=== PATIENT | male | born 1980 | race Caucasian/White ===

== ENCOUNTER 2023-02-07 21:40 | Inpatient (IN) | payer OTHER ==
[2023-02-07] MEDS ORDERED: MORPHINE SULFATE 4 MG/ML SYRINGE IV STA (21:54)
--- NOTE | 2023-02-07 22:05 | ED ---
General Adult HPI - General Chief complaint: Fall Stated complaint: Fall 15-20ft Time Seen by Provider: 02/07/23 21:44 Source: patient Mode of arrival: wheelchair Limitations: no limitations - History of Present Illness Initial comments: Dictation was produced using [employer] dictation software. please excuse any grammatical, word or spelling errors. Chief Complaint: 42-year-old male presents to the ER after fall History of Present Illness: 42-year-old male presents to emergency department after fall. He fell from a height of approximately 15 feet. He was on an area lift lost his balance falling to the ground landing on his right side. Patient complaining of back pain and rib pain. He was able to ambulate after the scene. Denies any extremity pain. The ROS documented in this emergency department record has been reviewed and confirmed by me. Those systems with pertinent positive or negative responses have been documented in the HPI. All other systems are other negative and/or noncontributory. - Related Data Allergies Allergy/AdvReac Type Severity Reaction Status Date / Time amoxicillin Allergy Unknown Verified 02/07/23 21:56 Review of Systems ROS Statement: Those systems with pertinent positive or pertinent negative responses have been documented in the HPI. ROS Other: All systems not noted in ROS Statement are negative. Past Medical History Past Medical History: No Reported History Past Alcohol Use History: Occasional Past Drug Use History: None Reported General Exam - General Exam Comments Initial Comments: PHYSICAL EXAM: General Impression: Alert and oriented x3, acute distress or pain HEENT: Normocephalic atraumatic, extra-ocular movements intact, pupils equal and reactive to light bilaterally, mucous membranes moist. Cardiovascular: Heart regular rate and rhythm Chest: Able to complete full sentences, no retractions, no tachypnea Abdomen: abdomen soft, non-tender, non-distended, no organomegaly Musculoskeletal: Pulses present and equal in all extremities, no peripheral edema Motor: no focal deficits noted Neurological: CN II-XII grossly intact, no focal motor or sensory deficits noted Skin: Patient to the right lower back Psych: Normal affect and mood Limitations: no limitations Course Vital Signs 02/07/23 02/07/23 02/07/23 21:46 21:56 23:00 Temperature 98.2 F Pulse Rate 82 77 Respiratory 16 16 Rate Blood Pressure 89/63 103/65 109/55 O2 Sat by Pulse 95 93 L 99 Oximetry 02/08/23 00:00 Temperature Pulse Rate 92 Respiratory 20 Rate Blood Pressure 110/65 O2 Sat by Pulse 97 Oximetry EKG Findings - EKG Comments: EKG Findings:: My EKG interpretation: Ventricular rate 70, sinus rhythm,. 16, QRS 86, QTC 421. No KS prolongation, no QTC prolongation, no ST or T-wave changes noted. Overall, this EKG is unremarkable Medical Decision Making - Medical Decision Making Was pt. sent in by a medical professional or institution (, [facility], LEGAL WORD PROCESSOR, urgent care, hospital, or assisted...) When possible be specific @ -No Did you speak to anyone other than the patient for history (EMS, parent, family, police, friend...)? What history was obtained from this source @ -No Did you review nursing and triage notes (agree or disagree)? Why? @ -I reviewed and agree with nursing and triage notes Were old charts reviewed (outside hosp., previous admission, EMS record, old EKG, old radiological studies, urgent care reports/EKG's, assisted records)? Report findings @ -No old charts were reviewed Differential Diagnosis (chest pain, altered mental status, abdominal pain women, abdominal pain men, vaginal bleeding, musculoskeletal, weakness, fever, dyspnea, syncope, headache, dizziness, GI bleed, back pain, seizure, CVA, palpatations, mental health)? @ -not applicable EKG interpreted by me (3pts min.). @ -See above X-rays interpreted by me (1pt min.). @ -Chest x-ray and pelvis x-ray shows no acute processes. CT interpreted by me (1pt min.). @ -Computed tomography scan of the head and C-spine shows no acute processes. Computed tomography scan chest and pelvis shows small tiny right-sided pneumothorax. There is a rib fracture to the 10th rib and transverse vertebral fractures L1 to L3 U/S interpreted by me (1pt. min.). @ -None done What testing was considered but not performed or refused? (CT, X-rays, U/S, labs)? Why? @ -None What meds were considered but not given or refused? Why? @ -None Did you discuss the management of the patient with other professionals (professionals i.e. , [facility], LEGAL WORD PROCESSOR, lab, RT, psych nurse, pediatric social worker, digital analyst, teacher, medical corps officer, shoe caser)? Give summary @ -Case discussed with Dr. Tucker for trauma admission Was smoking cessation discussed for >3mins.? @ -No Was critical care preformed (if so, how long)? @ -No Were there social determinants of health that impacted care today? How? (Homelessness, low income, unemployed, alcoholism, drug addiction, transportation, low edu. Level, literacy, decrease access to med. care, long-term, rehab)? @ -No Was there de-escalation of care discussed even if they declined (Discuss DNR or withdrawal of care, Hospice)? DNR status @ -No What co-morbidities impacted this encounter? (DM, HTN, Smoking, COPD, CAD, Cancer, CVA, ARF, Chemo, Hep., AIDS, mental health diagnosis, sleep apnea, morbid obesity)? @ -None Was patient admitted / discharged? Hospital course, mention meds given and ro bang, prescriptions, significant lab abnormalities, going to OR and other pertinent info. @ -42-year-old male presents to emergency department after a fall. Vital signs are stable. Initial blood pressure was 89/63 however likely an error. Repeat blood pressure measured 10 minutes later without any intervention was 06/13/1963. Laboratory evaluation obtained. Fund be within acceptable limits. Alcohol level is 144. CT shows rib fracture, tiny pneumothorax and transverse process fractures to the lumbar vertebral. Patient will be admitted for trauma observation for pneumothorax and rib fracture management. Undiagnosed new problem with uncertain prognosis? @ -No Drug Therapy requiring intensive monitoring for toxicity (Heparin, Nitro, Insulin, Cardizem)? @ -No Were any procedures done? @ -No Diagnosis/symptom? Acute, or Chronic, or Acute on Chronic? Uncomplicated (without systemic symptoms) or Complicated (systemic symptoms)? @ -1. Fall competent by pneumothorax, rib fracture and lumbar vertebral fractures Side effects of treatment? @ -No Exacerbation, Progression, or Severe Exacerbation? @ -No Poses a threat to life or bodily function? How? (Chest pain, USA, MT, pneumonia, PE, COPD, DKA, ARF, appy, cholecystitis, CVA, Diverticulitis, Homicidal, Suicidal, threat to staff... and all critical care pts) @ -yes - Lab Data Result diagrams: 02/07/23 21:56 02/07/23 21:56 Lab Results 02/07/23 02/07/23 02/07/23 Range/Units 21:56 21:56 21:56 WBC 11.0 H (3.8-10.6) k/uL RBC 4.96 (4.30-5.90) m/uL Hgb 14.9 (13.0-17.5) gm/dL Hct 43.9 (39.0-53.0) % MCV 88.5 (80.0-100.0) fL MCH 30.1 (25.0-35.0) pg MCHC 34.0 (31.0-37.0) g/dL RDW 12.6 (11.5-15.5) % Plt Count 330 (150-450) k/uL MPV 7.3 Neutrophils % 62 % Lymphocytes % 32 % Monocytes % 3 % Eosinophils % 1 % Basophils % 1 % Neutrophils # 6.8 (1.3-7.7) k/uL Lymphocytes # 3.6 (1.0-4.8) k/uL Monocytes # 0.3 (0-1.0) k/uL Eosinophils # 0.2 (0-0.7) k/uL Basophils # 0.1 (0-0.2) k/uL PT 10.5 (9.0-12.0) sec INR 1.0 (<1.2) APTT 20.0 L (22.0-30.0) sec Sodium 142 (137-145) mmol/L Potassium 3.9 (3.5-5.1) mmol/L Chloride 106 (98-107) mmol/L Carbon Dioxide 23 (22-30) mmol/L Anion Gap 13 mmol/L BUN 10 (9-20) mg/dL Creatinine 1.18 (0.66-1.25) mg/dL Est GFR (CKD-EPI)AfAm 88 (>60 ml/min/1.73 sqM) Est GFR (CKD-EPI)NonAf 76 (>60 ml/min/1.73 sqM) Glucose 102 H (74-99) mg/dL Calcium 8.9 (8.4-10.2) mg/dL Total Bilirubin 0.4 (0.2-1.3) mg/dL AST 123 H (17-59) U/L ALT 88 H (4-49) U/L Alkaline Phosphatase 77 (38-126) U/L Troponin I (0.000-0.034) ng/mL Total Protein 7.2 (6.3-8.2) g/dL Albumin 4.8 (3.5-5.0) g/dL Serum Alcohol 144 mg/dL Blood Type Blood Type Confirm Blood Type Recheck Bld Type Recheck Status Antibody Screen Spec Expiration Date 02/07/23 02/07/23 02/07/23 Range/Units 21:56 22:09 22:10 WBC (3.8-10.6) k/uL RBC (4.30-5.90) m/uL Hgb (13.0-17.5) gm/dL Hct (39.0-53.0) % MCV (80.0-100.0) fL MCH (25.0-35.0) pg MCHC (31.0-37.0) g/dL RDW (11.5-15.5) % Plt Count (150-450) k/uL MPV Neutrophils % % Lymphocytes % % Monocytes % % Eosinophils % % Basophils % % Neutrophils # (1.3-7.7) k/uL Lymphocytes # (1.0-4.8) k/uL Monocytes # (0-1.0) k/uL Eosinophils # (0-0.7) k/uL Basophils # (0-0.2) k/uL PT (9.0-12.0) sec INR (<1.2) APTT (22.0-30.0) sec Sodium (137-145) mmol/L Potassium (3.5-5.1) mmol/L Chloride (98-107) mmol/L Carbon Dioxide (22-30) mmol/L Anion Gap mmol/L BUN (9-20) mg/dL Creatinine (0.66-1.25) mg/dL Est GFR (CKD-EPI)AfAm (>60 ml/min/1.73 sqM) Est GFR (CKD-EPI)NonAf (>60 ml/min/1.73 sqM) Glucose (74-99) mg/dL Calcium (8.4-10.2) mg/dL Total Bilirubin (0.2-1.3) mg/dL AST (17-59) U/L ALT (4-49) U/L Alkaline Phosphatase (38-126) U/L Troponin I <0.012 (0.000-0.034) ng/mL Total Protein (6.3-8.2) g/dL Albumin (3.5-5.0) g/dL Serum Alcohol mg/dL Blood Type A Positive Blood Type Confirm A Positive Blood Type Recheck No Previous Record Bld Type Recheck Status CABO Indicated Antibody Screen NEGATIVE Spec Expiration Date 02/10/20232309 Disposition Clinical Impression: Fall Disposition: ADMITTED IP TO THIS HOSP Condition: Fair Referrals: [facility],Clinic [Primary Care Provider] - 1-2 days Decision Time: 00:00
[2023-02-07] MEDS ORDERED: HYDROmorphone 1 MG/ML 1 ML SYRINGE IVP STA (22:36)
--- NOTE | 2023-02-07 22:40 | CT ---
EXAMINATION TYPE: CT brain javier francois con DATE OF EXAM: 02/07/2023 COMPARISON: NONE HISTORY: FALL 15 FT, LANDED ON BACK. CT DLP: 1649.5 mGycm. Automated Exposure Control for Dose Reduction was Utilized. TECHNIQUE: CT scan of the head and cervical spine are performed without contrast. FINDINGS: There is no acute intracranial hemorrhage, mass effect, or midline shift identified. The ventricles and sulci are within normal limits in size. Ward-white matter differentiation is maintain ed. The calvarium is intact. Slightly low-lying cerebellar tonsils to level of foramen magnum. No gre ater than 5 mm inferior displacement is seen. The globes are intact and the visualized sinuses are cl ear. Cervical spine is visualized in its entirety from C1 through upper thoracic levels and demonstrates l evoconvex scoliotic curvature or positioning centered in the upper thoracic spine without evidence of acute fracture or dislocation. There is grade 1 retrolisthesis C4 on C5. There is mild posterior spu rring at C4-C5 and C6-C7 levels with posterior spur disc complexes effacing anterior thecal sac at th tavon levels sagittal images. Prevertebral soft tissue appears within normal limits. The C1-C2 articu lation is within normal limits on the coronal images. Review of axial images shows normal-appearing thyroid gland. Lung apices show no pneumothorax. IMPRESSION: 1. There is no acute fracture or dislocation evident in the cervical spine. 2. No acute intracranial hemorrhage or midline shift is seen.
[2023-02-07 22:44] LABS: Basophils # (A) 0.1 k/uL (0-0.2); Basophils % (A) 1 %; Eosinophils # (A) 0.2 k/uL (0-0.7); Eosinophils % (A) 1 %; HCT 43.9 % (39.0-53.0); HGB 14.9 gm/dL (13.0-17.5); Lymphocytes # (A) 3.6 k/uL (1.0-4.8); Lymphocytes % (A) 32 %; MCH 30.1 pg (25.0-35.0); MCV 88.5 fL (80.0-100.0); Mean Platelet Volume 7.3; Monocytes # (A) 0.3 k/uL (0-1.0); Monocytes % (A) 3 %; Neutrophils # (A) 6.8 k/uL (1.3-7.7); Neutrophils % (A) 62 %; Platelet Count 330 k/uL (150-450); RBC 4.96 m/uL (4.30-5.90); RDW 12.6 % (11.5-15.5)
--- NOTE | 2023-02-07 22:47 | CT ---
EXAMINATION TYPE: CT ChestAbdPelvis w con DATE OF EXAM: 02/07/2023 COMPARISON: None. HISTORY: FALL 15 FT, LANDED ON BACK. CT DLP: 1963.7 mGycm. Automated Exposure Control for Dose Reduction was Utilized. CONTRAST: CT scan of the thorax, abdomen and pelvis is performed with IV Contrast, patient injected with 100 mL of Isovue 300. FINDINGS: LUNGS: Small right-sided pneumothorax estimated near 5% anteriorly. Dependent opacities both lungs fa vors atelectasis MEDIASTINUM: There is a 4 vessel origin from the aortic arch which is normal variant. LIVER/GB: No significant abnormality is appreciated. PANCREAS: No significant abnormality is seen. SPLEEN: No significant abnormality is seen. ADRENALS: No significant abnormality is seen. KIDNEYS: No significant abnormality is seen. BOWEL: No significant abnormality is seen. GENITAL ORGANS: No gross abnormality seen. LYMPH NODES: No greater than 1cm abdominal or pelvic lymph nodes are appreciated. OSSEOUS STRUCTURES: Acute vertical slightly displaced fractures through the transverse process at rig ht L1-L3 levels. Acute slightly displaced comminuted fracture posterior right 10th rib coronal image 74. OTHER: Small to moderate-sized fat-containing bilateral inguinal hernias. IMPRESSION: 1. Small the tiny right-sided pneumothorax estimated at or just over 5%. No mediastinal shift. Acute comminuted displaced fracture of the posterior right 10th rib is likely etiology. 2. There are additional acute minimally displaced vertical fractures through the L1-L3 right-sided tr ansverse processes. Results communicated to ordering ER physician via telephone at time of dictation.
--- NOTE | 2023-02-07 22:48 | XR ---
EXAMINATION TYPE: XR pelvis AP view DATE OF EXAM: 02/07/2023 CLINICAL HISTORY: Trauma. TECHNIQUE: A single AP view of the pelvis is obtained. COMPARISON: Same day CT. FINDINGS: There is no acute fracture/dislocation evident in the pelvis. The hip and sacroiliac join ts appear symmetric and unremarkable. The overlying soft tissue appears unremarkable. IMPRESSION: There is no acute fracture or dislocation in the pelvis.
--- NOTE | 2023-02-07 22:49 | XR ---
EXAMINATION TYPE: XR chest 1V portable DATE OF EXAM: 02/07/2023 COMPARISON: Same day CT HISTORY: Trauma. TECHNIQUE: Single frontal view of the chest is obtained. FINDINGS: Low lung volumes are present. Tiny right-sided pneumothorax seen better on CT versus x-ray The cardiac silhouette size is within normal limits. Underlying scoliotic curvature is present. IMPRESSION: As above.
[2023-02-07 22:58] LABS: ALT 88 U/L (4-49); AST 123 U/L (17-59); African American GFR (CKD) 88 (>60 ml/min/1.73 sqM); Albumin 4.8 g/dL (3.5-5.0); Alkaline Phosphatase 77 U/L (38-126); Anion Gap 13 mmol/L; Blood Urea Nitrogen 10 mg/dL (9-20); Calcium 8.9 mg/dL (8.4-10.2); Carbon Dioxide 23 mmol/L (22-30); Chloride 106 mmol/L (98-107); Glucose 102 mg/dL (74-99); Non-African American GFR(CKD) 76 (>60 ml/min/1.73 sqM); Potassium 3.9 mmol/L (3.5-5.1); Prothrombin Time 10.5 sec (9.0-12.0); Sodium 142 mmol/L (137-145); Total Bilirubin 0.4 mg/dL (0.2-1.3); Total Protein 7.2 g/dL (6.3-8.2)
[2023-02-07 23:04] LABS: Alcohol 144 mg/dL
[2023-02-08] MEDS ORDERED: HYDROmorphone 1 MG/ML 1 ML SYRINGE IVP STA (00:04)
[2023-02-08] MEDS ORDERED: NALOXONE 0.4 MG/ML 1 ML VIAL IV PRN (00:34)
[2023-02-08] MEDS: MORPHINE SULFATE 4 MG/ML SYRINGE IVP PRN ×4 (01:59→17:18)
--- NOTE | 2023-02-08 04:35 | P.CNPUL ---
History of Present Illness Consult date: 02/08/23 Requesting physician: Crescencio John Reason for consult: pneumothorax, abnormal CXR/CT Chief complaint: Fall History of present illness: I am seeing this patient in new consultation today 02/08/2023 after he fell approximately 15 feet landing on his right side sustaining a displaced right sided 10th rib fracture and trace right-sided pneumothorax. Patient is a 42-year-old white male with out any significant medical history. He was out working in his yard, intoxicated, when he fell from heavy machinery landing on the "outrigger" of the machine. He reportedly fell on his right side. CT scan of the thorax, abdomen, and pelvis showed a small tiny right pneumothorax approximately 5%, acute comminuted displaced fracture of the posterior right 10th rib. There were also acute minimally displaced L1 to L3 right-sided vertebral fractures of the transverse processes. Bibasilar atelectasis. No hemothorax. No acute intra-abdominal abnormalities identified. Patient is currently lying in bed, on a 15 L nonrebreather, in no acute distress. He is oxygenating at 100%, and this was transitioned to 6 L nasal cannula. There is a right flank superficial abrasion. CBC and BMP on arrival were unremarkable. Mildly elevated LFTs. EtOH level was 144. Patient is reportedly well controll ed. Patient is being monitored on the general medical floor. Review of Systems REVIEW OF SYSTEMS: CONSTITUTIONAL: Denies any recent significant weight loss or weight gain. EYES: Denies change in vision. EARS, NOSE, MOUTH, THROAT: Denies headaches, denies sore throat. CARDIOVASCULAR: Denies palpitations or syncopal episodes. RESPIRATORY: Denies shortness of breath, cough, congestion or hemoptysis. GASTROINTESTINAL: Denies change in appetite, abdominal pain, nausea and vomiting, or diarrhea GENITOURINARY: Denies hematuria, denies infections. MUSKULOSKELETAL: Denies pain, denies swelling. Admits right lateral chest pain especially on deep inspiration. INTEGUMENTARY: Denies rash, denies eczema. NEUROLOGICAL: Denies recent memory loss, no recent seizure activity. PSYCHIATRIC: Denies anxiety, denies depression. HEMATOLOGIC/LYMPHATIC: Denies anemia, denies enlarged lymph node Past Medical History Past Medical History: No Reported History History of Any Multi-Drug Resistant Organisms: None Reported Additional Past Surgical History / Comment(s): lymphnode biopsy, was negative years ago. Additional Past Anesthesia/Blood Transfusion Reaction / Comment(s): has never had transfusion Past Psychological History: Anxiety, Depression, PTSD Additional Psychological History / Comment(s): [facility] Smoking Status: Former smoker Past Alcohol Use History: Occasional Past Drug Use History: None Reported Medications and Allergies Allergies Allergy/AdvReac Type Severity Reaction Status Date / Time amoxicillin Allergy Unknown Verified 02/07/23 21:56 Physical Exam Vitals: Vital Signs Temp Pulse Pulse Resp BP BP Pulse Ox 02/08/23 01:00 69 14 124/79 98 02/08/23 00:15 98.0 F 78 18 136/81 90 L 02/08/23 00:00 92 20 110/65 97 02/07/23 23:00 77 16 109/55 99 02/07/23 21:56 103/65 93 L 02/07/23 21:46 98.2 F 82 16 89/63 95 Intake and Output 02/07/23 02/07/23 02/08/23 14:59 22:59 06:59 Other: Weight 95.254 kg 95.254 kg GENERAL EXAM: Alert, 42-year-old white male, comfortable in no apparent distress. HEAD: Normocephalic and atraumatic EYES: Normal reaction of pupils, equal size. NOSE: Clear with pink turbinates. THROAT: No erythema or exudates. NECK: No masses, no JVD. CHEST: No chest wall deformity. No subcutaneous emphysema or crepitus LUNGS: Equal air entry with no crackles, wheeze, rhonchi or dullness. On 6 L/m nasal cannula oxygenating at 100%. No conversational dyspnea or accessory muscle use.. CVS: S1 and S2 normal with no audible murmur, regular rhythm. No extra heart sounds ABDOMEN: No hepatosplenomegaly, active bowel sounds, no guarding or rigidity. SPINE: No scoliosis or deformity SKIN: No rashes right flank superficial abrasion. CENTRAL NERVOUS SYSTEM: No focal deficits, tone is normal in all 4 extremities. EXTREMITIES: There is no peripheral edema, clubbing, or cyanosis. Peripheral pulses are intact. Results - Laboratory Findings CBC and BMP: 02/07/23 21:56 02/07/23 21:56 PT/INR, D-dimer PT 10.5 sec (9.0-12.0) 02/07/23 21:56 INR 1.0 (<1.2) 02/07/23 21:56 Abnormal lab findings: Abnormal Labs 02/07/23 02/07/23 02/07/23 21:56 21:56 21:56 WBC 11.0 H APTT 20.0 L Glucose 102 H AST 123 H ALT 88 H - Diagnostic Findings Chest x-ray: image reviewed CT scan - chest: image reviewed Assessment and Plan Assessment: Fall, resulting in an acute comminuted displaced fracture of the posterior right 10th rib and small right apical pneumothorax measuring approximately 5%. Acute minimally displaced L1 to L3 right-sided vertebral fractures of the transverse processes. Acute hypoxemic respiratory failure, currently on 6 L/m nasal cannula Alcohol intoxication Elevated LFTs, likely secondary to above Plan: Patient's medications, labs, and imaging were reviewed Pneumothorax is approximately 5%, and will be monitored for re-expansion. No need for chest tube placement at this time. Repeat chest x-ray in the morning Continue supplemental oxygen, and this can be weaned down. Mostly to facilitate lung re-expansion Encourage incentive spirometer Pain is reportedly well managed with current analgesics Patient is hemodynamically stable at this time. We will continue to follow and make recommendations I have personally seen and examined the patient, performed the documentation and the assessment and plan as written. Number of minutes spent on the visit:20 Time with Patient: Greater than 30
[2023-02-08] MEDS: KETOROLAC 15 MG/ML 1 ML VIAL IVP SCH ×3 (09:48→18:27)
--- NOTE | 2023-02-08 12:04 | P.CNOR ---
History of Present Illness - [facility] Consult date: 02/08/23 Consult reason: other (L1, L2 and L3 right-sided transverse process fracture) History of present illness: Patient is a 42-year-old male who was brought in to [facility] emergency room on 02/07/2023 after sustaining a fall at his home. Apparently the patient was up on some scaffolding material when he fell about 15 feet landing on his right side. Patient was able to ambulate after the injury, he actually walked into the hospital for evaluation. Patient had multiple imaging test lab test done. Patient was noted to be intoxicated from blood-alcohol level. He was noted to have a right-sided rib fracture and a small pneumothorax on the right- hand side. Imaging test also demonstrated minimally displaced transverse process fractures of L1, L2 and L3 on the right-hand side. Patient was admitted to the hospital for further evaluation, our orthopedic team was consulted. Patient was evaluated today at bedside, he is resting comfortably and lying flat in his bed. He notes most of his pain to the right side of the ribs and his right lower back. There was noted abrasions to the right side of his lower back and flank. Patient denies any obvious pain involving the bilateral lower extremities or bilateral upper extremities. He denies any headaches, lightheadedness or chest pain. He does note some mild shortness of breath when he attempts to take deep breaths. Patient does get some discomfort in the right side of the low back with movement of the bilateral lower extremities. He denie s any numbness or tingling in the bilateral upper or lower extremities. He denies any numbness or tingling of the genitals or perineal region. Patient denies any loss of bowel or bladder function, he has urinated since being in the hospital, he denies a bowel movement at this time. She denies any previous surgery to the cervical, thoracic or lumbar spine. Review of Systems Constitutional: Reports as per HPI Past Medical History Past Medical History: No Reported History History of Any Multi-Drug Resistant Organisms: None Reported Additional Past Surgical History / Comment(s): lymphnode biopsy, was negative years ago. Additional Past Anesthesia/Blood Transfusion Reaction / Comm: has never had transfusion Past Psychological History: Anxiety, Depression, PTSD Additional Psychological History / Comment(s): [facility] Smoking Status: Former smoker Past Alcohol Use History: Occasional Past Drug Use History: None Reported Medications and Allergies Home Medications Medication Instructions Recorded Confirmed Type Citalopram Hydrobromide [CeleXA] 40 mg PO HS 02/08/23 02/08/23 History Prazosin HCl 2 mg PO HS 02/08/23 02/08/23 History hydrOXYzine pamoate 50 mg PO BID PRN 02/08/23 02/08/23 History Allergies Allergy/AdvReac Type Severity Reaction Status Date / Time amoxicillin Allergy Unknown Verified 02/08/23 07:29 Physical Examination Gen: AOx3, NAD VSS stable at this time Integument: No obvious open lesions, sore to the cervical, thoracic or lumbar spine. There is some abrasions noted to the right low back/flank area. Palpation: No tenderness with palpation throughout the cervical or thoracic spine, he does have some mild tenderness on the right side of the paraspinal regions of lumbar area ROM: Full range of motion in all major muscle groups of the bilateral upper extremities, no focal deficits appreciated Range of motion is intact in all major muscle groups of bilateral lower extremities, hip flexion along with knee extension and knee flexion does reprod uce some discomfort on the right side low back Sensory Exam: Senory exam to light touch is intact C5-T1 Senosry exam to light touch is intact L2-S1 Motor: 5/5 strength appreciated in the bilateral upper extremities with shoulder elevation, shoulder abduction, elbow extension, elbow flexion, wrist extension, wrist flexion, meat cooler 5/5 strength appreciated in the bilateral lower extremities with plantar flexion, dorsiflexion, EHL, FHL 4+/5 strength appreciated in the bilateral lower extremities with hip flexion, knee extension, knee flexion Reflexes: 2/4 in all UE and LE Negative Osmani's bilaterally, negative Babinski bilaterally, negative clonus bilaterally Special Test: Logroll maneuver reproduces no pain bilaterally Results - Labs Labs: Abnormal Lab Results - Last 24 Hours (Table) 02/07/23 02/07/23 02/07/23 Range/Units 21:56 21:56 21:56 WBC 11.0 H (3.8-10.6) k/uL APTT 20.0 L (22.0-30.0) sec Glucose 102 H (74-99) mg/dL AST 123 H (17-59) U/L ALT 88 H (4-49) U/L H & H 02/07/23 Range/Units 21:56 Hgb 14.9 (13.0-17.5) gm/dL Hct 43.9 (39.0-53.0) % Coagulation 02/07/23 Range/Units 21:56 INR 1.0 (<1.2) Result Diagrams: 02/07/23 21:56 02/07/23 21:56 Assessment and Plan Assessment: Low back pain Minimally displaced right-sided transverse process fractures L1, L2, L3 Right-sided rib fracture Status post fall from height Other medical comorbidities Plan: Imaging: Reports and images were reviewed of the cervical spine, abdomen/pelvis and chest CT report and images were also reviewed. Images demonstrated the mildly displaced transverse process fractures of L1, L2 and L3 on the right-hand side. Right sided rib fracture was also noted. Cervical spine demonstrated no acute fractures or dislocations, spondylitic changes noted throughout C4-C5, C5-C6, C6-C7 Plan: I was able to discuss this case, this include imaging studies, physical exam findings and lab studies with my attending Dr. Prieto. No emergent orthopedic surgical intervention is recommended at this time Recommending conservative measures, this to include weight-bear as tolerated. Patient was advised to avoid excessive bending, lifting and twisting. We discussed the possibility of an LSO brace in the future if his symptoms don't improve, this can be addressed in the outpatient setting. Pain control, recommending the use of Tylenol and NSAIDs at this time. Also recommending the use of ice to the low back and right sided rib area. GI and DVT prophylaxis per primary medical service Other medical records technician and recommendations appreciated Discharge planning: Orthopedic standpoint the patient is stable for discharge and follow-up in the outpatient setting with Dr. Prieto. Please contact our service any further questions Time with Patient: Less than 30
[2023-02-08] MEDS ORDERED: LORazepam 1 MG TAB PO PRN ×3 (13:57)
[2023-02-08] MEDS ORDERED: LORazepam 0.5 MG TAB PO PRN (13:57)
[2023-02-08] MEDS ORDERED: THIAMINE 100 MG/ML 2 ML VIAL IM STA (13:57)
--- NOTE | 2023-02-08 13:57 | P.GSHP ---
History of Present Illness H&P Date: 02/08/23 CHIEF COMPLAINT: Fall HISTORY OF PRESENT ILLNESS: This is a 42-year-old male who was on a left. He reports that he slipped and fell from the left about 15 feet landing on his right side on the ground. He complains of back and right rib pain. He denies any loss of consciousness or hitting his head. Denies any abdominal pain. Alcohol level was elevated at 144. He had a computed tomography scan of the chest abdomen pelvis that did reveal a tiny right pneumothorax and displaced fracture posterior 10th rib and fracture of the L1 to L3 right transverse processes. Patient admitted to trauma service. Patient initially did require to be on a nonrebreather and is now on 4 L nasal cannula satting at 100%. PAST MEDICAL HISTORY: See list. PAST SURGICAL HISTORY: See list. MEDICATIONS: See list. ALLERGIES: See list. SOCIAL HISTORY: No illicit drug use. REVIEW OF SYSTEMS: CONSTITUTIONAL: Denies fever or chills. HEENT: Denies blurred vision, vision changes, or eye pain. Denies hemoptysis ENDOCRINE: Denies heat or cold intolerance. CARDIOVASCULAR: Denies chest pain or pressure. RESPIRATORY: No shortness of breath. GASTROINTESTINAL: Denies abdominal pain. Denies nausea or vomiting. NEURO: Denies history of seizures. PSYCH: No depression or suicidal ideation HEMATOLOGIC: Denies bleeding disorders. LYMPHATIC: The patient denies any lumps and bumps around the neck. GENITOURINARY: Denies any blood in urine or increased urinary frequency. MUSCULOSKELETAL: Denies myalgias. Denies joint swelling. Denies decreased range of motion beyond patients baseline. SKIN: Denies pruitis. Denies rash. PHYSICAL EXAM: VITAL SIGNS: Reviewed GENERAL: Well-developed in no acute distress. HEENT: No sclera icterus. Extraocular movements grossly intact. Moist buccal mucosa. Head is atraumatic, normocephalic. Hears conversational speech. No nasal drainage. NECK: Supple without lymphadenopathy. CHEST: Non-labored respirations and equal bilateral excursions. CARDIOVASCULAR: Palpable 2+ radial pulses. ABDOMEN: Soft. Nondistended. Nontender MUSCULOSKELETAL: No clubbing or cyanosis. NEUROLOGIC: No focal or lateralizing signs. Cranial nerves II through XII grossly intact. PSYCH: Appropriate affect. Alert and oriented to person, place and time. SKIN: Well perfused. Good skin turgor. LABORATORY DATA: WBC 11 Hgb 14.9 and platelets 330 Sodium 142 potassium 3.9 creatinine 1.18 Lactic acid 1.8 AST 123 ALT 88 troponin negative Serum alcohol elevated at 144 IMAGING: CT had cervical spine there is no acute fracture or dislocation evident of the cervical spine. No acute intracranial hemorrhage or midline shift Computed tomography scan chest abdomen and pelvis small tiny right-sided pneumothorax estimated at just over 5%. No mediastinal shift. Acute comminuted displaced fracture of the posterior right 10th rib. There are additional acute minimally displaced vertical fracture through the O1 to L3 right-sided transverse process ASSESSMENT: 1. 15 foot fall from lift to ground level 2. Tiny right-sided pneumothorax 3. Acute comminuted displaced fracture of the posterior right 10th rib 4. Acute Displaced fractures through L1 to L3 right-sided transverse processes 5. Alcohol intoxication 6. Elevated LFTs PLAN: -Consults placed for pulmonary, spinal surgery, medicine service and pain service -Continue monitoring oxygen saturation -Continue pain management. Toradol and oral Tylenol ordered scheduled -Add CIIL protocol to monitor for any EtOH withdrawal -Repeat labs and chest x-ray in a.m. -Encouraged patient to use incentive spirometer -DVT prophylaxis subcu heparin Physician Production Control Planner note has been reviewed by physician. Signing provider agrees with the documented findings, assessment, and plan of care. Past Medical History Past Medical History: No Reported History History of Any Multi-Drug Resistant Organisms: None Reported Additional Past Surgical History / Comment(s): lymphnode biopsy, was negative years ago. Additional Past Anesthesia/Blood Transfusion Reaction / Comment(s): has never had transfusion Past Psychological History: Anxiety, Depression, PTSD Additional Psychological History / Comment(s): treatment through the [facility] Smoking Status: Former smoker Past Alcohol Use History: Occasional Past Drug Use History: None Reported Medications and Allergies Home Medications Medication Instructions Recorded Confirmed Type Citalopram Hydrobromide [CeleXA] 40 mg PO HS 02/08/23 02/08/23 History Prazosin HCl 2 mg PO HS 02/08/23 02/08/23 History hydrOXYzine pamoate 50 mg PO BID PRN 02/08/23 02/08/23 History Allergies Allergy/AdvReac Type Severity Reaction Status Date / Time amoxicillin Allergy Unknown Verified 02/08/23 07:29 Surgical - Exam Vital Signs Temp Pulse Resp BP Pulse Ox 98.2 F 82 16 89/63 95 02/07/23 21:46 02/07/23 21:46 02/07/23 21:46 02/07/23 21:46 02/07/23 21:46 Results - Labs 02/07/23 21:56 02/07/23 21:56 Abnormal Lab Results - Last 24 Hours (Table) 02/07/23 02/07/23 02/07/23 Range/Units 21:56 21:56 21:56 WBC 11.0 H (3.8-10.6) k/uL APTT 20.0 L (22.0-30.0) sec Glucose 102 H (74-99) mg/dL AST 123 H (17-59) U/L ALT 88 H (4-49) U/L Diabetes panel 02/07/23 Range/Units 21:56 Sodium 142 (137-145) mmol/L Potassium 3.9 (3.5-5.1) mmol/L Chloride 106 (98-107) mmol/L Carbon Dioxide 23 (22-30) mmol/L BUN 10 (9-20) mg/dL Creatinine 1.18 (0.66-1.25) mg/dL Glucose 102 H (74-99) mg/dL Calcium 8.9 (8.4-10.2) mg/dL AST 123 H (17-59) U/L ALT 88 H (4-49) U/L Alkaline Phosphatase 77 (38-126) U/L Total Protein 7.2 (6.3-8.2) g/dL Albumin 4.8 (3.5-5.0) g/dL Calcium panel 02/07/23 Range/Units 21:56 Calcium 8.9 (8.4-10.2) mg/dL Albumin 4.8 (3.5-5.0) g/dL Pituitary panel 02/07/23 Range/Units 21:56 Sodium 142 (137-145) mmol/L Potassium 3.9 (3.5-5.1) mmol/L Chloride 106 (98-107) mmol/L Carbon Dioxide 23 (22-30) mmol/L BUN 10 (9-20) mg/dL Creatinine 1.18 (0.66-1.25) mg/dL Glucose 102 H (74-99) mg/dL Calcium 8.9 (8.4-10.2) mg/dL Adrenal panel 02/07/23 Range/Units 21:56 Sodium 142 (137-145) mmol/L Potassium 3.9 (3.5-5.1) mmol/L Chloride 106 (98-107) mmol/L Carbon Dioxide 23 (22-30) mmol/L BUN 10 (9-20) mg/dL Creatinine 1.18 (0.66-1.25) mg/dL Glucose 102 H (74-99) mg/dL Calcium 8.9 (8.4-10.2) mg/dL Total Bilirubin 0.4 (0.2-1.3) mg/dL AST 123 H (17-59) U/L ALT 88 H (4-49) U/L Alkaline Phosphatase 77 (38-126) U/L Total Protein 7.2 (6.3-8.2) g/dL Albumin 4.8 (3.5-5.0) g/dL
[2023-02-08] MEDS: ACETAMINOPHEN TAB 500 MG TAB PO SCH ×2 (14:46→20:36)
--- NOTE | 2023-02-08 14:57 | P.PAINPG ---
Objective - Vital Signs Vital signs: Vital Signs Temp 98.0 F 02/08/23 00:15 Pulse 69 02/08/23 01:00 Resp 14 02/08/23 01:00 BP 124/79 02/08/23 01:00 Pulse Ox 98 02/08/23 01:00 FiO2 Intake & Output 02/07/23 02/08/23 02/08/23 18:59 06:59 18:59 Weight 95.254 kg Other: # Voids 0 - Labs CBC & Chem 7: 02/07/23 21:56 02/07/23 21:56 Labs: Abnormal Lab Results - Last 24 Hours (Table) 02/07/23 02/07/23 02/07/23 Range/Units 21:56 21:56 21:56 WBC 11.0 H (3.8-10.6) k/uL APTT 20.0 L (22.0-30.0) sec Glucose 102 H (74-99) mg/dL AST 123 H (17-59) U/L ALT 88 H (4-49) U/L PQRS Measure Charge Sheet Comment: HISTORY OF PRESENT ILLNESS: 42 yr old inpatient male as a referral from Dr John presents today w severe and chronic upper and lower back pain secondary to R rib fractures and R minimally displaced L1-L3 transverse process fractures for evaluation. He fell approx 15 ft from a ladder approx 1 day ago. Pt states pain level is provoked at 10/10 in intensity, constant, localized in the R posterior upper back and R lower back, sharp in character w shooting pain towards the R flank. Pain is provoked by any type of movement. Pain is alleviated by medications (Dilaudid 1mg IVP q3h prn, MS ER 4mg IVP q4h prn, Toradol 15mg/mL q6h prn), repositioning and rest. PMH: OA, PTSD/ MDD/ Anxiety PSH: DENIES SH: Former tobacco user, Occasional ETOH use, No illicit drug use. history. FH: Non contributory All: See list Meds: See list REVIEW OF ORGAN SYSTEMS: CONSTITUTIONAL: No fevers or chills. No recent weight loss. NEUROLOGICAL: + numbness and tingling along the distal extremities. No seizure disorders or headaches. MUSCULOSKELETAL: + pain PSYCHIATRIC: Denies current depression or suicidal thoughts. Physical Examinations : Constitutional : Cooperative , not in acute distress . Neurologic : Cranial nerve II to XII intact. No focal neurological deficits. Psychiatric : alert & oriented x 3. Matching mood & appropriate affect. Judgment & insight intact. Musculoskeletal : Cervical Spine Motor strength in the deltoid and biceps: Normal right side. Normal Left side Motor strength biceps and the wrist extensors: Normal right side . Normal left side Motor strength in the triceps muscle: Normal right side. Normal left side Deep tendon reflexes: Normal at the biceps. Normal at Brachioradialis. Normal at triceps Vertebral body tenderness to deep palpation over Cervical facet loading test: positive bilaterally Spurling test: positive bilaterally Neck distraction test: positive bilaterally Osmani sign: positive bilaterally Thoracic spine Diffuse vertebral body TTP over T9, T10, T11, T12 Lumbar spine Motor strength lower extremities ,thigh and legs 5/5 Right side , 5/5 Left side Deep tendon reflexes : Normal Knee Jerk. Normal Ankle Jerk Vertebral body tenderness over L1, L2, L3 Pacheco Test positive Lumbar facet Loading Test: positive Right / positive Left Range of motion of the lumbar spine Flexion 30 degrees, extension 10 degrees Straight Leg Raise test: Left/ Right positive at degree Donya test: positive right / positive left. Severe tenderness over the Sacroiliac joint on the Right / Left sides Gaenslen test: positive bilaterally Seated flexion test: positive bilaterally. Sacral spine : Severe tenderness over the Sacroiliac joint: right side / left side Range of motion: Flexion of the lumbar spine <60 degrees Range of motion: Extension of the lumbar spine <20 degrees Gaenslen's Test positive Simone's Test positive Donya test: positive right side / left side Thigh Thrust Test Sacral Thrust Test Imaging: CT without contrast of chest from 02/07/[address] without contrast of pelvis from 02/07/23 reviewed Assessment/ Plan : R T10 posterior rib fracture s/p fall, R Transverse L1, L2, L3 fractures s/p fall Recommendation of SOILA R TFESI T9-10 and L1-L2, L2-L3, L3-L4 and medication management s/p discharge. Risks, benefits of procedure discussed and patient verbalized understanding. Admits to aspirin or anti- coagulant use or medical history of diabetes. Protocol for discontinuation/ continuation of medications gordy procedure discussed. Minimal anesthesia provided, if clinically indicated, consisting of Versed and Fentanyl. All questions answered. I have spent greater than 30 minutes on patient care today. Dr Fenton was carrol ilable by phone for the evaluation of this patient. The time was used to review the medical records including relevant urine studies and Prescription history (MAPs), review of the available imaging, evaluation and examination of the patient, coordination of care with the medical staff and if applicable referring physicians, as well as creation of the medical record PQRS Narrative: Blood Pressure [Left Arm] 136/81 Blood Pressure 124/79 Pain Intensity 10 Pain Scale Used Numeric (1 - 10) Scale Used Numeric (1 - 10) Home Medications: Ambulatory Orders Citalopram Hydrobromide [CeleXA] 40 mg PO HS 02/08/23 Prazosin HCl 2 mg PO HS 02/08/23 hydrOXYzine pamoate 50 mg PO BID PRN 02/08/23 Controlled Substance Measures - Controlled Substance Measures Is patient prescribed a controlled substance at discharge?: No
--- NOTE | 2023-02-08 16:46 | P.CONS ---
History of Present Illness - Reason for Consult Consult date: 02/08/23 - History of Present Illness Patient is a 42-year-old male with PMH of depression that presents the ED after a fall of approximately 15 feet. He landed on his right side. He denies any loss of consciousness. He underwent extensive workup in the ED. Initially hypotensive with BP of 89/63. Vital signs were otherwise stable. He did eventually require nonrebreather mask to maintain O2 saturation greater than 92%. Currently being weaned down to 2 L nasal cannula. CBC showed WBC count of 11. Coagulation panel showed INR of 1. CMP showed glucose 102, AST 123 and ALT of 88. Lactic acid was 1.8. Serum alcohol 144. Troponin less than 0.012. EKG showed normal sinus rhythm with ventricular rate of 70. CT head and C-spine was negative for acute changes. CT chest abdomen and pelvis showed small right- sided pneumothorax of 5% acute comminuted displaced fracture of the posterior 10th rib, minimally displaced vertical fractures L1 L3 transverse process. Pelvic x-ray was negative. Chest x-ray showed findings similar to CT chest. Patient was admitted under trauma surgery with pulmonology, orthopedic surgery, pain management and [employer] on consult. He does report drinking 2-3 beers daily. Patient was seen and examined in the afternoon. He reports pain in his right chest and lumbar spine. He denies any shortness of breath. Currently on 2 L nasal cannula. Pain is 10 out of 10 with movement. Pertinent positives and negatives as discussed in HPI, a complete review of systems was performed and all other systems are negative. General: non toxic, no distress, appears at stated age Derm: warm, dry Head: atraumatic, normocephalic, symmetric Eyes: EOMI, no lid lag, anicteric sclera Cardiovascular: S1S2 reg, no murmur Lungs: CTA bilateral, no rhonchi, no rales , no accessory muscle use Abdominal: soft, nontender to palpation, no guarding, no appreciable organomegaly Ext: no gross muscle atrophy, no edema, no contractures Neuro: no focal neuro deficits Psych: Alert, oriented, appropriate affect Traumatic pneumothorax Rib fracture L1 L3 transverse process fracture Depression Leukocytosis Alcohol intoxication Transaminitis Based on my assessment of this patient, this patient meets a high complexity level of care. Patient has an acute diagnosis of PTX secondary to rib fracture and transverse process fracture that poses a threat to life or bodily function. Traumatic pneumothorax: Pain management with Morphine 4 mg IV Q4H PRN. Incentive spirometer. Pulmonology recommends conservative management and repeat CXR tomorrow morning. Rib fracture: Management as above. L1 L3 transverse process fracture: Orthopedic surgery recommends no surgical intervention. Weight bearing as tolerated. LSO brace if symptoms dont improve. Pain management on board. Depression: Restart Prazosin and [place]. Leukocytosis: Reactive. Alcohol intoxication: Denies history of withdrawal. Transaminitis: Likely due to EtOH abuse. SCDs for DVT prophylaxis. I have reviewed the following in home sales consultant notes: Pulmonology, Surgery, Pain management note reviewed. I have reviewed the results of the following tests: CT head, CT C-spine, CXR, Pelvic XR, CT CAP, CBC, BMP, Coag panel. I have ordered the following tests: I have discussed the care of this patient with the following independent histor charli: I have independently interpreted the following test below: EKG as above. I have discussed the management of this patient with the following physician: Past Medical History Past Medical History: No Reported History History of Any Multi-Drug Resistant Organisms: None Reported Additional Past Surgical History / Comment(s): lymphnode biopsy, was negative years ago. Additional Past Anesthesia/Blood Transfusion Reaction / Comm: has never had transfusion Past Psychological History: Anxiety, Depression, PTSD Additional Psychological History / Comment(s): treatment through the [place] Smoking Status: Former smoker Past Alcohol Use History: Occasional Past Drug Use History: None Reported Medications and Allergies Home Medications Medication Instructions Recorded Confirmed Type Citalopram Hydrobromide [CeleXA] 40 mg PO HS 02/08/23 02/08/23 History HYDROcodone/APAP 10-325MG [[place] 1 tab PO Q4HR PRN 7 Days #42 tab 02/08/23 Rx 10-325] Prazosin HCl 2 mg PO HS 02/08/23 02/08/23 History hydrOXYzine pamoate 50 mg PO BID PRN 02/08/23 02/08/23 History Allergies Allergy/AdvReac Type Severity Reaction Status Date / Time amoxicillin Allergy Unknown Verified 02/08/23 07:29 Physical Exam Vitals: Vital Signs Temp Pulse Pulse Pulse Resp BP BP 02/08/23 14:11 98.3 F 69 18 131/83 02/08/23 08:48 02/08/23 07:08 98.5 F 74 17 122/75 02/08/23 01:00 69 14 124/79 02/08/23 00:15 98.0 F 78 18 136/81 02/08/23 00:00 92 20 110/65 02/07/23 23:00 77 16 109/55 02/07/23 21:56 103/65 02/07/23 21:46 98.2 F 82 16 89/63 Pulse Ox 02/08/23 14:11 99 02/08/23 08:48 100 02/08/23 07:08 99 02/08/23 01:00 98 02/08/23 00:15 90 L 02/08/23 00:00 97 02/07/23 23:00 99 02/07/23 21:56 93 L 02/07/23 21:46 95 Intake and Output 02/08/23 02/08/23 02/08/23 06:59 14:59 22:59 Other: # Voids 0 Weight 95.254 kg Results CBC & Chem 7: 02/07/23 21:56 02/07/23 21:56 Labs: Abnormal Lab Results - Last 24 Hours (Table) 02/07/23 02/07/23 02/07/23 Range/Units 21:56 21:56 21:56 WBC 11.0 H (3.8-10.6) k/uL APTT 20.0 L (22.0-30.0) sec Glucose 102 H (74-99) mg/dL AST 123 H (17-59) U/L ALT 88 H (4-49) U/L
[2023-02-08] MEDS: HYDROcodone/APAP 7.5-325MG 1 EACH TAB PO PRN (20:36)
[2023-02-08] MEDS: HEPARIN SODIUM,PORCINE 5,000 UNIT/ML 1 ML VIAL SQ SCH (20:46)
[2023-02-08] MEDS ORDERED: PRAZOSIN 1 MG CAP PO SCH (21:00)
[2023-02-08] MEDS ORDERED: CITALOPRAM HYDROBROMIDE 20 MG TAB PO SCH (21:00)
[2023-02-08] MEDS: hydrOXYzine pamoate 25 MG CAP PO PRN (21:46)
[2023-02-08] MEDS ORDERED: CYCLOBENZAPRINE 10 MG TAB PO STA (22:12)
[2023-02-09] MEDS: KETOROLAC 15 MG/ML 1 ML VIAL IVP SCH ×3 (00:31→12:50)
[2023-02-09] MEDS: ACETAMINOPHEN TAB 500 MG TAB PO SCH ×2 (04:26→07:30)
[2023-02-09] MEDS: HYDROcodone/APAP 7.5-325MG 1 EACH TAB PO PRN (04:51)
[2023-02-09] MEDS: hydrOXYzine pamoate 25 MG CAP PO PRN (04:52)
--- NOTE | 2023-02-09 07:17 | XR ---
EXAMINATION TYPE: XR chest 2V DATE OF EXAM: 02/09/2023 6:39 AM COMPARISON: Chest radiographs from 02/07/2023, CT chest abdomen pelvis 02/07/2023 TECHNIQUE: XR chest 2V Frontal and lateral views of the chest. CLINICAL INDICATION:Male, 42 years old with history of Chest Trauma; FINDINGS: Lungs/Pleura: No pleural effusion. Small right basilar patchy airspace opacity. Small right apical pn eumothorax redemonstrated. Pulmonary vascularity: Unremarkable. Heart/mediastinum: Cardiomediastinal silhouette is unremarkable. Musculoskeletal: Known right posterior 10th rib fractures better appreciated on CT. IMPRESSION: 1. Small right apical pneumothorax redemonstrated. 2. Small right basilar patchy opacity which likely represents atelectasis versus pulmonary contusion .
[2023-02-09] MEDS: HEPARIN SODIUM,PORCINE 5,000 UNIT/ML 1 ML VIAL SQ SCH (07:30)
[2023-02-09 07:35] VITALS: BP 111/68; PULSE 62; RESP 18; TEMP 98.7
[2023-02-09] MEDS ORDERED: THIAMINE 100 MG TAB PO SCH (09:00)
[2023-02-09] MEDS ORDERED: MULTIVITAMINS, THERA 1 EACH TAB PO SCH (09:00)
[2023-02-09 09:37] LABS: ALT 53 U/L (10-49); AST 42 U/L (14-35); Albumin 4.2 d/dL (3.8-4.9); Albumin/Globulin Ratio 2.33 Ratio (1.60-3.17); Alkaline Phosphatase 77 U/L (41-126); BUN/Creat Ratio 10.55 Ratio (12.00-20.00); Blood Urea Nitrogen 11.6 mg/dL (9.0-27.0); Calcium 9.2 mg/dL (8.7-10.3); Carbon Dioxide 28.7 mmol/L (21.6-31.8); Chloride 99 mmol/L (96-109); Globulin 1.8 d/dL (1.6-3.3); Glucose 89 mg/dL (70-110); Potassium 4.2 mmol/L (3.5-5.5); Sodium 136 mmol/L (135-145); Total Bilirubin 0.8 mg/dL (0.3-1.2)
[2023-02-09 09:38] LABS: Basophils # (A) 0.05 X 10*3/uL (0.00-0.10); Basophils % (A) 0.6 %; Eosinophils # (A) 0.21 X 10*3/uL (0.04-0.35); Eosinophils % (A) 2.6 %; HCT 40.5 % (39.6-50.0); HGB 13.3 d/dL (13.0-17.0); Lymphocytes # (A) 1.26 X 10*3/uL (0.90-5.00); Lymphocytes % (A) 15.3 %; MCH 29.7 pg (27.0-32.0); MCHC 32.8 d/dL (32.0-37.0); MCV 90.4 FL (80.0-97.0); Mean Platelet Volume 9.6 FL (9.5-12.2); Monocytes # (A) 0.76 X 10*3/uL (0.20-1.00); Monocytes % (A) 9.2 %; NRBC Per 100 WBC 0 X 10*3/uL (0.00-0.01); Neutrophils # (A) 5.91 X 10*3/uL (1.80-7.70); Neutrophils % (A) 71.9 %; Platelet Count 236 X 10*3/uL (140-440); RBC 4.48 X 10*6/uL (4.40-5.60); RDW 12.4 % (11.5-14.5); WBC 8.22 X 10*3/uL (4.50-10.00)
--- NOTE | 2023-02-09 11:59 | P.DS ---
Providers Date of admission: 02/08/23 00:34 Expected date of discharge: 02/09/23 Attending physician: Diane Carlson Consults: 02/08/23 00:35 Consult Physician Routine Consulting Provider: [facility] Consult Reason/Comments: Pulmonary Contusion Do you want consulting provider notified?: Yes 02/08/23 07:28 Consult Physician Routine Consulting Provider: Claribel Mc Consult Reason/Comments: medical managment Do you want consulting provider notified?: Yes 02/08/23 08:08 Consult Physician Routine Consulting Provider: Chon Prieto Consult Reason/Comments: Fracture L1-L3 right transverse processes Do you want consulting provider notified?: Yes Primary care physician: [facility] Hospital Course: Discharge diagnosis 1. 15 foot fall from lift to ground level 2. Tiny right-sided pneumothorax 3. Acute comminuted displaced fracture of the posterior right 10th rib 4. Acute Displaced fractures through L1 to L3 right-sided transverse processes 5. Alcohol intoxication 6. Elevated LFTs Hospital course This is a 42-year-old male who was on a lift. He reports that he slipped and fell from the lift about 15 feet landing on his right side on the ground. He complains of back and right rib pain. And was found to have evidence of right 10th rib fracture with a tiny right-sided pneumothorax and acute displaced fractures through L1 to L3 right-sided transverse processes. Patient's pain is controlled. He has been up and ambulating. He is tolerating diet. He is afebrile. He has been cleared by all consulting physicians. Orthopedic services arranging for back brace outpatient. Patient is stable for discharge. Physician Radiology Transporter note has been reviewed by physician. Signing provider agrees with the documented findings, assessment, and plan of care. Patient Condition at Discharge: Stable Plan - Discharge Summary Discharge Rx Participant: Yes New Discharge Prescriptions: New HYDROcodone/APAP 10-325MG [[place] 10-325] 1 tab PO Q4HR PRN 7 Days #42 tab PRN Reason: Pain Cyclobenzaprine [Flexeril] 10 mg PO BID PRN #6 tab PRN Reason: Muscle Spasm Continue Prazosin HCl 2 mg PO HS Citalopram Hydrobromide [CeleXA] 40 mg PO HS hydrOXYzine pamoate 50 mg PO BID PRN PRN Reason: Anxiety Discharge Medication List Citalopram Hydrobromide [CeleXA] 40 mg PO HS 02/08/23 [History] HYDROcodone/APAP 10-325MG [[place] 10-325] 1 tab PO Q4HR PRN 7 Days #42 tab 02/08/23 [Rx] Prazosin HCl 2 mg PO HS 02/08/23 [History] hydrOXYzine pamoate 50 mg PO BID PRN 02/08/23 [History] Cyclobenzaprine [Flexeril] 10 mg PO BID PRN #6 tab 02/09/23 [Rx] Follow up Appointment(s)/Referral(s): [facility],Clinic [Primary Care Provider] - 1-2 days Chon Prieto DO [Doctor of Osteopathic Medicine] - 1 Week John Owens MD [STAFF PHYSICIAN] - 1 Week Discharge Disposition: HOME SELF-CARE
--- NOTE | 2023-02-09 12:44 | P.PN ---
Subjective Progress Note Date: 02/09/23 I am seeing this patient in new consultation today 02/08/2023 after he fell approximately 15 feet landing on his right side sustaining a displaced right sided 10th rib fracture and trace right-sided pneumothorax. Patient is a 42-year-old white male with out any significant medical history. He was out w orking in his yard, intoxicated, when he fell from heavy machinery landing on the "outrigger" of the machine. He reportedly fell on his right side. CT scan of the thorax, abdomen, and pelvis showed a small tiny right pneumothorax approximately 5%, acute comminuted displaced fracture of the posterior right 10th rib. There were also acute minimally displaced L1 to L3 right-sided vertebral fractures of the transverse processes. Bibasilar atelectasis. No hemothorax. No acute intra-abdominal abnormalities identified. Patient is currently lying in bed, on a 15 L nonrebreather, in no acute distress. He is oxygenating at 100%, and this was transitioned to 6 L nasal cannula. There is a right flank superficial abrasion. CBC and BMP on arrival were unremarkable. Mildly elevated LFTs. EtOH level was 144. Patient is reportedly well controlled. Patient is being monitored on the general medical floor. The patient is seen today 02/09/2023 and follow-up on the regular medical floor. He is currently sitting up in a chair at the bedside. Awake and alert in no acute distress. Continues to maintain good O2 saturations in the 90s on room air. Afebrile. Hemodynamically stable. Working well with the incentive spirometer. Chest x-ray continues to small show a small right apical pneu mothorax. Small right basilar patchy opacity. White count 8.2. Hemoglobin 13.3. Platelets 236. Sodium 136. Potassium 4.2. Bicarb 29. BUN 12. Creatinine 1.1. AST 42. ALT 53. He remains on a CIWA protocol. Adequate pain control. Heparin for DVT prophylaxis. Objective - Vital Signs Vital signs: Vital Signs Temp 98.7 F 02/09/23 06:52 Pulse 62 02/09/23 06:52 Resp 18 02/09/23 06:52 BP 111/68 02/09/23 06:52 Pulse Ox 93 L 02/09/23 09:24 FiO2 21 02/09/23 09:24 Intake & Output 02/08/23 02/09/2302/09/23 18:59 06:59 18:59 Output Total 400 Balance -400 Output: Urine 400 Other: # Voids 0 - Exam GENERAL EXAM: Alert, 42-year-old male, on room air, fairly comfortable in no apparent distress. HEAD: Normocephalic and atraumatic EYES: Normal reaction of pupils, equal size. NOSE: Clear with pink turbinates. THROAT: No erythema or exudates. NECK: No masses, no JVD. CHEST: No chest wall deformity. No subcutaneous emphysema or crepitus LUNGS: Equal air entry with no crackles, wheeze, rhonchi or dullness. No conversational dyspnea or accessory muscle use. CVS: S1 and S2 normal with no audible murmur, regular rhythm. No extra heart sounds ABDOMEN: No hepatosplenomegaly, active bowel sounds, no guarding or rigidity. SPINE: No scoliosis or deformity SKIN: No rashes right flank superficial abrasion. CENTRAL NERVOUS SYSTEM: No focal deficits, tone is normal in all 4 extremities. EXTREMITIES: There is no peripheral edema, clubbing, or cyanosis. Peripheral pulses are intact. - Labs CBC & Chem 7: 02/09/23 05:49 02/09/23 05:49 Labs: Abnormal Lab Results - Last 24 Hours (Table) 02/09/23 Range/Units 05:49 BUN/Creatinine Ratio 10.55 L (12.00-20.00) Ratio AST 42 H (14-35) U/L ALT 53 H (10-49) U/L Total Protein 6.0 L (6.2-8.2) d/dL Assessment and Plan Assessment: Fall, resulting in an acute comminuted displaced fracture of the posterior right 10th rib and small right apical pneumothorax measuring approximately 5%. Acute minimally displaced L1 to L3 right-sided vertebral fractures of the transverse processes. Acute hypoxemic respiratory failure, recovered and on room air Alcohol intoxication Elevated LFTs, likely secondary to above, improving Plan: The patient was seen and evaluated Chest x-ray, labs and medications reviewed Continues with a tiny apical pneumothorax Stable and on room air Cleared for discharge from the pulmonary standpoint Encouraged to continue to utilize the incentive spirometer Will need follow-up chest x-ray next week To return to the emergency department should he have any worsening shortness of breath or chest pain I have personally seen and examined the patient, performed the documentation and the assessment and plan as written. Number of minutes spent on the visit: 10.
--- NOTE | 2023-02-09 15:20 | P.PN ---
Subjective Progress Note Date: 02/09/23 Patient is a 42-year-old male with PMH of depression that presents the ED after a fall of approximately 15 feet. He landed on his right side. He denies any loss of consciousness. He underwent extensive workup in the ED. Initially hypotensive with BP of 89/63. Vital signs were otherwise stable. He did eventually require nonrebreather mask to maintain O2 saturation greater than 92%. Currently being weaned down to 2 L nasal cannula. CBC showed WBC count of 11. Coagulation panel showed INR of 1. CMP showed glucose 102, AST 123 and ALT of 88. Lactic acid was 1.8. Serum alcohol 144. Troponin less than 0.012. EKG showed normal sinus rhythm with ventricular rate of 70. CT head and C-spine was negative for acute changes. CT chest abdomen and pelvis showed small right- sided pneumothorax of 5% acute comminuted displaced fracture of the posterior 10th rib, minimally displaced vertical fractures L1 L3 transverse process. Pelvic x-ray was negative. Chest x-ray showed findings similar to CT chest. Patient was admitted under trauma surgery with pulmonology, orthopedic surgery, pain management and [employer] on consult. He does report drinking 2-3 beers daily. Patient was seen and examined in the afternoon. He reports pain in his right chest and lumbar spine. He denies any shortness of breath. Currently on 2 L nasal cannula. Pain is 10 out of 10 with movement. 02/09 Patient was seen and examined. No acute events overnight. Patient reports well controlled back and right chest pain. Looking forward to going home. CXR shows small right apical PTX and atlectasis. CBC unremarkable. CMP shows AST 42, ALT 53. General: non toxic, no distress, appears at stated age Derm: warm, dry Head: atraumatic, normocephalic, symmetric Eyes: EOMI, no lid lag, anicteric sclera Cardiovascular: good distal perfusion in all 4 extremities Lungs: breathing comfortably , no accessory muscle use Ext: no gross muscle atrophy, no edema, no contractures Neuro: no focal neuro deficits Psych: Alert, oriented, appropriate affect Traumatic pneumothorax Rib fracture L1 L3 transverse process fracture Depression Leukocytosis Alcohol intoxication Transaminitis Based on my assessment of this patient, this patient meets a moderate complexity level of care. Patient has an acute diagnosis of PTX secondary to rib fracture and transverse process fracture that poses a threat to life or bodily function. Traumatic pneumothorax: Pain management with Morphine 4 mg IV Q4H PRN. Incentive spirometer. Pulmonology recommends conservative management. Rib fracture: Management as above. L1 L3 transverse process fracture: Orthopedic surgery recommends no surgical intervention. Weight bearing as tolerated. LSO brace if symptoms dont improve. Pain management on board. Depression: Restart Prazosin and [place]. Leukocytosis: Reactive. Alcohol intoxication: Denies history of withdrawal. Transaminitis: Likely due to EtOH abuse. Plans for discharge home today. SCDs for DVT prophylaxis. I have reviewed the following big machine consultant notes: Pulmonology, Surgery note reviewed. I have reviewed the results of the following tests: CXR, CBC, CMP I have ordered the following tests: I have discussed the care of this patient with the following independent historian: I have independently interpreted the following test below: I have discussed the management of this patient with the following physician: Objective - Vital Signs Vital signs: Vital Signs Temp 98.7 F 02/09/23 06:52 Pulse 62 02/09/23 06:52 Resp 18 02/09/23 06:52 BP 111/68 02/09/23 06:52 Pulse Ox 93 L 02/09/23 09:24 FiO2 21 02/09/23 09:24 Intake & Output 02/08/23 02/09/23 02/09/23 18:59 06:59 18:59 Output Total 400 Balance -400 Output: Urine 400 Other: # Voids 0 - Labs CBC & Chem 7: 02/09/23 05:49 02/09/23 05:49 Labs: Abnormal Lab Results - Last 24 Hours (Table) 02/09/23 Range/Units 05:49 BUN/Creatinine Ratio 10.55 L (12.00-20.00) Ratio AST 42 H (14-35) U/L ALT 53 H (10-49) U/L Total Protein 6.0 L (6.2-8.2) d/dL
== END 2023-02-09 13:20 | disposition home or self-care (01) | DRG 199 ==
LOC: EC 21:40 → 4SSUR 02-08 00:34
PROVIDERS: ADMIT Surgery Plastic and Reconstructive Surgery; ATTEND Surgery Plastic and Reconstructive Surgery
DX: S27.0XXA Traumatic pneumothorax, initial encounter (principal); J96.01 Acute respiratory failure with hypoxia; S22.31XA Fracture of one rib, right side, initial encounter for closed fracture; J98.11 Atelectasis; S32.019A Unspecified fracture of first lumbar vertebra, initial encounter for closed fracture; S32.029A Unspecified fracture of second lumbar vertebra, initial encounter for closed fracture; S32.039A Unspecified fracture of third lumbar vertebra, initial encounter for closed fracture; D72.829 Elevated white blood cell count, unspecified; G89.29 Other chronic pain; W11.XXXA Fall on and from ladder, initial encounter; Y93.89 Activity, other specified; Y92.017 Garden or yard in single-family (private) house as the place of occurrence of the external cause; R74.01 Elevation of levels of liver transaminase levels; F10.129 Alcohol abuse with intoxication, unspecified; Y90.6 Blood alcohol level of 120-199 mg/100 ml; S30.811A Abrasion of abdominal wall, initial encounter; F41.9 Anxiety disorder, unspecified; F32.A Depression, unspecified; F43.10 Post-traumatic stress disorder, unspecified; Z87.891 Personal history of nicotine dependence; Y93.9 Activity, unspecified; Y92.9 Unspecified place or not applicable; Z28.310 Unvaccinated for COVID-19; Z88.0 Allergy status to penicillin
CPT/HCPCS: 36415; 70450; 71045; 71046; 71260; 72125; 72170; 74177; 80053; 80320; 83605; 84484; 85025; 85610; 85730; 86850; 86900; 86901; 93005; 94760; 96374; 96375; 96376; 99285